=== PATIENT | female | born 1980 | race African-American/Black ===

== ENCOUNTER → 2019-07-29 | Outpatient (CLI) | payer OTHER ==
--- NOTE | 2019-07-29 13:06 | RAD ---
Examination: EXT NON VASC LTD BILATERAL History: Right and left groin region swelling. Comparison/Correlation: None Findings: Ultrasound imaging of the right and left groin regions was performed. Edema involving the right groin region is notable. Benign-appearing right groin lymph nodes are present. Left groin structure measuring 1 cm x 1 cm x 1 cm is present and hypoechoic with internal vascularity noted on color Doppler imaging. Slightly more medial location, there is a 1.4 cm x 1.1 cm x 0.9 cm hypoechoic left groin structure. Impression: Right groin lymph nodes. Simultaneous edema involving the right groin region. There are 2 small hypoechoic structures involving the left groin. These may represent lymph nodes or other process. Correlate clinically in determining follow-up. Electronically signed by: Bayron Mclain MD (07/29/2019 1:03 PM) [facility]
== END | disposition home or self-care (01) ==
LOC: RAD 10:58
PROVIDERS: ATTEND Family Medicine
DX: R19.03 Right lower quadrant abdominal swelling, mass and lump (principal); R19.04 Left lower quadrant abdominal swelling, mass and lump; R59.0 Localized enlarged lymph nodes
CPT/HCPCS: 76882

== ENCOUNTER → 2019-08-24 | Day surgery (SDC) | payer OTHER ==
[~2019-08-24] MED LIST: LIDOCAINE 1%/EPI 1:100,000 20 ML VIAL. INJ ONE; MULT1TAB52 PO; NEOMY/BACITR/POLYMYXIN OINT PACKET. TP ONE
[2019-08-24 08:19] VITALS: BP 129/67
--- NOTE | 2019-08-24 09:05 | PDOC ---
BRIEF OPERATIVE NOTE Date: Aug 24, 2019 Pre-Op Diagnosis skin lesion right mons Post-Op Diagnosis same Procedure Performed excision Surgeon Rajesh Anesthesia Type: Local Blood Loss minimal Specimens Obtained skin and subcutaneous tissue 1x1x0.5 cm Complications none Operative Note Wk #[id number] RAJI WINSTON MD Aug 24, 2019 09:05
--- NOTE | 2019-08-24 09:08 | DISCH ---
DISCHARGE INSTRUCTIONS Condition on Discharge Condition on Discharge: Stable Activity After Discharge Activity Instructions for Disc: No restrictions, Activity as tolerated, Avoid exertion Diet after Discharge Diet after Discharge: Regular Wound Incision Care Wound/Incision Care: Ice to area for comfort Other wound/incision instructi: march shower Thursday Follow-Up Follow up with: Rajesh 09/01 office RAJI WINSTON MD Aug 24, 2019 09:08
--- NOTE | 2019-08-24 09:16 | OP ---
DATE OF SURGERY: 08/24/2019 PREOPERATIVE DIAGNOSIS: Skin lesion, right mons. POSTOPERATIVE DIAGNOSIS: Skin lesion, right mons. PROCEDURE: Excision. SURGEON: Raji Winston MD ANESTHESIA: Local. SPECIMEN: Skin and subcutaneous tissue 1 x 1 x 0.5 cm. DESCRIPTION OF PROCEDURE: The patient gave informed consent. Timeout done. An area prepped and draped in usual sterile fashion. Marking pen outlined the elliptical incision to include the process. Infiltrated with 1% lidocaine with epinephrine. We sharply incised and the skin and underlying process removed en bloc. Hemostasis with cautery. Wound closed with interrupted inverted 3-0 Vicryl in the subcutaneous tissue. Simple sutures of 4-0 nylon in the skin. Sterile dressing applied. The patient tolerated well. RAJI WINSTON MD DR: TAVIA/nts JOB#: [id number] / [id number]
--- NOTE | 2019-08-26 12:06 | PATHOLOGY ---
[facility] Accession Number: [id number] . 01 Material submitted: . mons pubis - SKIN AND SUBCUTANEOUS TISSUE RIGHT MONS PUBIS. Modifiers: right . 01 Clinical history: . Cyst, mons pubis . 02 Diagnosis: Skin and subcutaneous tissue, right mons pubis excision: - Focal scarring and chronic inflammation of skin and subcutaneous tissue with focal entrapped segments of hair shaft and focal foreign body giant cell reaction. (JPM:slag mixer; 08/25/2019) MBR 08/26/2019 1115 Local . 02 Comment: The findings are consistent with a ruptured hair follicle(s). There is no evidence of malignancy. . 02 Electronically signed: . Emir Agustin MD, Pathologist NPI- [id number] . 01 Gross description: . Received in formalin labeled "Cortney Levy, skin and subcutaneous tissue, right mons," is an unoriented ellipse of dark rosa skin measuring 2.3 x 0.8 cm with underlying subcutaneous tissue excised to a depth of 1.0 cm. The resection margins are inked black. The skin surface displays a lesion that is poorly circumscribed, flat, romero-rosa, measures 0.2 x 0.1 cm, and extends 0.1 cm from the closest peripheral margin. The specimen is serially sectioned into 10 pieces and entirely submitted in cassettes A1 through A4 with tips in A4. Upon sectioning, no underlying cystic cavity is grossly identified. (TSD; 08/24/2019) TOB/TOB 08/24/2019 2210 Local . 02 Pathologist provided ICD-10: L90.5, L08.9 . 02 CPT . 222436 Specimen Comment: A courtesy copy of this report has been sent to Specimen Comment: [phone], . Specimen Comment: Report sent to / DR RUIZ Performed at: [address] [facility] [address], [place], [place] [id number] MD Connor Her MD Phone: [phone] Performed at: 02 [facility] [place] [address] [place], [place] [id number] MD Emir Agustin MD Phone: [phone]
== END ==
LOC: SURG 07:12
PROVIDERS: ATTEND Surgery
DX: L98.9 Disorder of the skin and subcutaneous tissue, unspecified (principal); L90.5 Scar conditions and fibrosis of skin; L08.89 Other specified local infections of the skin and subcutaneous tissue; Z79.2 Long term (current) use of antibiotics; Z72.89 Other problems related to lifestyle
CPT/HCPCS: 11421; 88304; J3490